=== PATIENT | female | born 1970 | race Two or more races ===

== ENCOUNTER 2017-01-27 17:01 | Emergency (ER) | payer OTHER ==
[~2017-01-27] VITALS: Ht 157.5 cm; Wt 91.8 kg
[2017-01-27] MEDS ORDERED: MOTRIN800 MG PO (19:04)
[2017-01-27] MEDS ORDERED: NORCO 5/3251 TABLET PO (19:04)
[2017-01-27 19:31] VITALS: BP 124/68
== END 2017-01-27 19:33 | disposition home or self-care (01) ==
LOC: EME 17:01
DX: M23.92 Unspecified internal derangement of left knee (principal); V49.40XD Driver injured in collision with unspecified motor vehicles in traffic accident, subsequent encounter
CPT/HCPCS: 73564; 99281; 99284